=== PATIENT | female | born 1960 | race Caucasian/White ===

== ENCOUNTER 2021-02-16 10:00 | Outpatient (RCR) | payer OTHER, SELFPAY ==
--- NOTE | 2021-01-28 15:25 | PTOPEVAL ---
INITIAL PHYSICAL THERAPY EVALUATION and PLAN OF CARE Thank you for referring Rukhsana Minaya to [facility] [place].? Rukhsana is scheduled to be seen for physical therapy? 1-2x/week for 5 weeks. Please review, sign, date and return this plan of care CRISTHIAN. I agree with and certify that the following plan of care is medically necessary. Referring Physician Date Admitting Provider: Attending Provider: abrahan barrett Referring Provider: *PT Outpatient Evaluation Start: 01/28/21 11:24 Freq: Status: Active Protocol: Document 01/28/21 11:20 HALEIGH (Rec: 01/28/21 13:04 HALEIGH [id number]) Therapy Assessment Status Assessment Status Assessment Status Evaluation Outpatient Past Medical History Past Medical History Source of Past Medical History Patient Gastrointestinal History Hx Gastroesophageal Reflux Disease Yes Musculoskeletal History Hx Back Injury Yes: L5/S1 disc 2019 Hx Other Musculoskeletal Disorders Yes: spondylolisthesis HEENT History Hx Retinal Detachment Yes: 2017 Reproductive History Hx Hysterectomy Yes: partial 05/2020-fibroid tumor 1999 Evaluation Information Problem Diagnosis vulvodynia Onset 2018 Subjective Information Began to notice rectal pain - Query Text:As Reported By Patient/ after having disc pain. But Family it remained after disc pain decreased. 2019 - went off of control meds to control - MD thought she was in menopause - so took her off the meds - went into menopause very quickly. Fibroid tumor - 1999 - size of grapefruit, did fibroid embolectomy - to shrunk down to size of golf ball - hardened. Tumor was sitting on rectum. Had partial hysterectomy to remove fibroid - thinking it was source of pain. Very involved surgery. Went through menopause - urethral caruncle started in 2019 - had to self catheterize Current symptoms - hurts to sit - sits on donut - rectum, perineum, and vulva If flexes forward will catch something and result in more pain. Pudendal nerve block - didn't work, c
--- NOTE | 2021-03-18 08:22 | PCPTNOTE ---
PHYSICAL THERAPY DISCHARGE SUMMARY Admitting Provider: Attending Provider: Laura Geiger MD Patient:Rukhsana Minaya Date of :1960 Rukhsana has not returned for any further treatments since 02/16/2021, therefore she will be discharged at this time. Rukhsana?s initial visit was on 01/28/2021 11:00 and she had a total of 5 visits. Rukhsana returned to work the week of February 16, 2021 and has never called to make any further appointments. The goals have been partially met. Thank you for referring Rukhsana to [facility]. Please review, sign, date and return this discharge summary CRISTHIAN. I have been updated about Rukhsana's current status and I agree with discharge from the above service at this time. Referring Physician Date
== END 2021-03-24 15:51 | disposition home or self-care (01) ==
LOC: ANHHIPT 10:00
PROVIDERS: PCP Family Medicine
DX: N94.818 Other vulvodynia (principal)
CPT/HCPCS: 97110; 97140; 97162